=== PATIENT | female | born 1995 | race Caucasian/White ===

== ENCOUNTER 2016-12-10 09:38 | Emergency (ER) | payer MEDICAID ==
[~2016-12-10] VITALS: Ht 170.2 cm; Wt 95.0 kg
[2016-12-10] MEDS ORDERED: KETOROLAC 60MG/2ML VIAL IM ONE (11:45)
[2016-12-10 12:01] LABS: UCG SCREEN NEGATIVE
[2016-12-10 12:09] VITALS: BP 132/68
== END 2016-12-10 14:22 | disposition home or self-care (01) ==
LOC: ER 09:40
DX: M54.2 Cervicalgia (principal); R07.9 Chest pain, unspecified
CPT/HCPCS: 70450; 71010; 72050; 81025; 96372; 99285; J1885; L0172